=== PATIENT | female | born 1960 | race Caucasian/White ===

== ENCOUNTER 2017-06-02 10:39 | Emergency (ER) | payer OTHER ==
[~2017-06-02] VITALS: Ht 167.6 cm; Wt 75.0 kg
[2017-06-02] MEDS ORDERED: METO50 PO (10:42)
[2017-06-02] MEDS ORDERED: ASPI81 PO (10:42)
[2017-06-02] MEDS ORDERED: PROPARACAINE HCL 0.5% 15 ML OPHTHALMIC SOLUTION OS ONE (12:00)
[2017-06-02] MEDS ORDERED: ACETAMINOPHEN 325 MG TABLET PO ONE (12:00)
[2017-06-02] MEDS ORDERED: FLUORESCEIN SODIUM 1 MG STRIP ONE (12:05)
[2017-06-02] MEDS ORDERED: GENTAMICIN SULFATE 0.3% OPHTHALMIC SOLUTION 5 ML OS ONE (12:30)
[2017-06-02 12:41] VITALS: BP 132/77
== END 2017-06-02 12:47 | disposition home or self-care (01) ==
LOC: EMS 10:40
DX: S05.02XA Injury of conjunctiva and corneal abrasion without foreign body, left eye, initial encounter (principal); I10 Essential (primary) hypertension; X58.XXXA Exposure to other specified factors, initial encounter; Y93.89 Activity, other specified; Y92.89 Other specified places as the place of occurrence of the external cause; Y99.8 Other external cause status
CPT/HCPCS: 99284

== ENCOUNTER 2017-07-07 05:49 | Emergency (ER) | payer OTHER ==
[~2017-07-07] VITALS: Ht 167.6 cm; Wt 72.7 kg
[~2017-07-07 05:49] MED LIST: ASPI81 PO; METO50 PO
[2017-07-07] MEDS ORDERED: ONDANSETRON HCL 4 MG/2 ML VIAL IVP ONE (06:30)
[2017-07-07] MEDS ORDERED: SODIUM CHLORIDE 0.9% 1,000 ML IV ONE (06:30)
[2017-07-07] MEDS ORDERED: ACETAMINOPHEN 500 MG TABLET PO ONE (06:30)
[2017-07-07 06:46] LABS: BASOPHILS # (AUTO) 0.01 K/uL (0.00-0.20); BASOPHILS % (AUTO) 0.2 % (0.0-2.0); EOSINOPHILS % (AUTO) 0.06 % (1.0-6.0); HEMATOCRIT 41.9 % (36-46); HEMOGLOBIN 13.8 g/dL (12.0-16.0); LYMPHOCYTES # (AUTO) 1.2 K/uL (1.0-4.8); LYMPHOCYTES % (AUTO) 20.8 % (22.0-44.0); MEAN CORPUSCULAR HGB CONC 32.9 G/dL (31.0-37.0); MEAN CORPUSCULAR VOLUME 94 fL (80-100); MONOCYTES # (AUTO) 0.3 K/uL (0.1-1.0); MONOCYTES % (AUTO) 5.1 % (2.0-9.0); NEUTROPHILS # (AUTO) 4.3 K/uL (1.8-7.7); NEUTROPHILS % (AUTO) 73.9 % (40.0-70.0); PLATELET COUNT (AUTO) 178 K/uL (150-450); RED BLOOD CELL COUNT(AUTO) 4.45 MIL/uL (4.00-5.20); RED CELL DISTRIBUTION WIDTH 13.2 % (11.5-14.5); WHITE BLOOD COUNT (AUTO) 5.8 K/uL (4.5-11.0)
[2017-07-07 06:56] LABS: ANION GAP 9 mmol/L (8-16); CALCIUM, TOTAL 8.6 mg/dL (8.8-10.5); CARBON DIOXIDE 27 mmol/L (22-29); CHLORIDE 101 mmol/L (98-107); CREATININE 0.85 mg/dL (0.60-1.30); GLOMERULAR FILTR. RATE CALC > 60 mL/min (>60); SODIUM SERUM 137 mmol/L (136-145); UREA NITROGEN, BLOOD 8 mg/dL (7-18)
[2017-07-07 07:01] LABS: ALANINE AMINOTRANSFERASE 45 U/L (12-78); ALBUMIN 3.3 g/dL (3.4-5.0); ASPARTATE AMINOTRANSFERASE 32 U/L (15-37); BILIRUBIN,TOTAL 0.2 mg/dL (0.1-1.0); TOTAL PROTEIN, SERUM 7.8 g/dL (6.4-8.2)
[2017-07-07 07:12] LABS: INFLUENZA TYPE B POSITIVE FOR TYPE B (NEGATIVE)
[2017-07-07] MEDS ORDERED: OSELTAMIVIR PHOSPHATE 75 MG CAPSULE PO ONE (07:30)
[2017-07-07 07:37] VITALS: BP 140/87
== END 2017-07-07 07:51 | disposition home or self-care (01) ==
LOC: EMS 05:50
DX: J11.1 Influenza due to unidentified influenza virus with other respiratory manifestations (principal); K31.89 Other diseases of stomach and duodenum; J02.9 Acute pharyngitis, unspecified; E78.00 Pure hypercholesterolemia, unspecified; I10 Essential (primary) hypertension; Z79.82 Long term (current) use of aspirin
CPT/HCPCS: 36415; 71010; 80053; 83690; 85025; 87804; 96361; 96374; 99285; J2405; J7030

== ENCOUNTER 2021-11-06 20:58 | Inpatient (IN) | payer OTHER ==
[~2021-11-06] VITALS: Ht 167.6 cm; Wt 73.5 kg
[~2021-11-06 20:58] MED LIST changes: +ASPI-1450 PO; -ASPI81 PO
[2021-11-06] MEDS ORDERED: LOSA100T58 PO (21:05)
[2021-11-06] MEDS ORDERED: AMLO10TA55 PO (21:05)
[2021-11-06] MEDS ORDERED: SODIUM CHLORIDE 0.9% 1,000 ML IV ONE (21:15)
[2021-11-06] MEDS ORDERED: ONDANSETRON HCL 4 MG/2 ML VIAL IVP ONE (21:15)
[2021-11-06 21:24] LABS: BASOPHILS % (AUTO) 0.3 % (0.0-2.0); EOSINOPHILS % (AUTO) 1.1 % (1.0-6.0); HEMATOCRIT 33.9 % (36-46); HEMOGLOBIN 11.5 g/dL (12.0-16.0); LYMPHOCYTES # (AUTO) 2.8 K/uL (1.0-4.8); LYMPHOCYTES % (AUTO) 34.7 % (22.0-44.0); MEAN CORPUSCULAR HEMOGLOBIN 28.9 pg (26.0-34.0); MEAN CORPUSCULAR HGB CONC 33.8 G/dL (31.0-37.0); MEAN CORPUSCULAR VOLUME 86 fL (80-100); MONOCYTES # (AUTO) 0.7 K/uL (0.1-1.0); MONOCYTES % (AUTO) 8.3 % (2.0-9.0); NEUTROPHILS # (AUTO) 4.5 K/uL (1.8-7.7); NEUTROPHILS % (AUTO) 55.6 % (40.0-70.0); PLATELET COUNT (AUTO) 356 K/uL (150-450); RED BLOOD CELL COUNT(AUTO) 3.97 MIL/uL (4.00-5.20); RED CELL DISTRIBUTION WIDTH 13.9 % (11.5-14.5)
[2021-11-06 21:33] LABS: ANION GAP 8 mmol/L (8-16); CALCIUM, TOTAL 8.7 mg/dL (8.8-10.5); CARBON DIOXIDE 29 mmol/L (22-29); CHLORIDE 103 mmol/L (98-107); CREATININE 0.73 mg/dL (0.60-1.30); GLOMERULAR FILTR. RATE CALC > 60 mL/min (>60); GLUCOSE,RANDOM 123 mg/dL (70-110); POTASSIUM 3.9 mmol/L (3.5-5.1); SODIUM SERUM 140 mmol/L (136-145); UREA NITROGEN, BLOOD 19 mg/dL (7-18)
[2021-11-06 21:39] LABS: ALANINE AMINOTRANSFERASE 25 U/L (12-78); ALKALINE PHOSPHATASE 87 U/L (46-116); ASPARTATE AMINOTRANSFERASE 16 U/L (15-37); BILIRUBIN,TOTAL 0.1 mg/dL (0.1-1.0); LIPASE 125 U/L (73-393); TOTAL PROTEIN, SERUM 7.9 g/dL (6.4-8.2)
[2021-11-06 21:42] LABS: COVID AG,FIA SOURCE NASAL SWAB
[2021-11-06 21:50] LABS: APPEARANCE,URINE CLEAR (CLEAR); BILIRUBIN,URINE NEGATIVE (NEGATIVE); GLUCOSE, URINE (UA) NEGATIVE (NEGATIVE); KETONES,URINE NEGATIVE (NEGATIVE); LEUKOCYTE ESTERASE ,URINE SMALL (NEGATIVE); NITRATE,URINE NEGATIVE (NEGATIVE); OCCULT BLOOD,URINE MODERATE (NEGATIVE); PH,URINE 5.5 (5.0-8.0); PROTEIN,URINE NEGATIVE (NEGATIVE); SPECIFIC GRAVITIY, URINE 1.012 (1.003-1.030); UROBILINOGEN,URINE <=1.0 mg/dL (<=1.0)
[2021-11-06 22:03] LABS: INFLUENZA TYPE A NEGATIVE FOR TYPE A (NEGATIVE); INFLUENZA TYPE B NEGATIVE FOR TYPE B (NEGATIVE)
[2021-11-06 22:14] LABS: BACTERIA,URINE None Seen /HPF (None Seen); SQUAMOUS EPITHELIAL CELL,UR Few /LPF (None Seen); WBC,URINE 0-2 /HPF (0-5)
[2021-11-06] MEDS ORDERED: BARIUM SULFATE 0.1% SUSPENSION 450 ML BOTTLE PO ONE (22:15)
[2021-11-06] MEDS ORDERED: SODIUM CHLORIDE 0.9% 100 ML ONE (22:29)
[2021-11-06] MEDS ORDERED: IOHEXOL 350 MG/ML 100 ML VIAL ONE (22:29)
[2021-11-07] VITALS (7 sets, daily range): BP systolic 120–146; BP diastolic 58–78
[2021-11-07] MEDS ORDERED: ONDANSETRON HCL 4 MG/2 ML VIAL IVP PRN
[2021-11-07] MEDS: HEPARIN SODIUM,PORCINE 5,000 UNITS/ML VIAL SQ SCH ×3 (02:03→16:18)
[2021-11-07] MEDS: PIPERACILLIN/TAZO 3.375 GM/D5W 50 ML IV SCH ×4 (02:05→21:13)
[2021-11-07] MEDS: RINGERS SOLUTION,LACTATED 1,000 ML IV SCH ×3 (02:44→16:15)
[2021-11-07] MEDS ORDERED: SODIUM CHLORIDE 0.9% 250 ML IV ONE (02:53)
[2021-11-07] MEDS: ACETAMINOPHEN 325 MG TABLET PO PRN (16:18)
[2021-11-08] MEDS: HEPARIN SODIUM,PORCINE 5,000 UNITS/ML VIAL SQ SCH ×4 (00:19→23:30)
[2021-11-08] MEDS: RINGERS SOLUTION,LACTATED 1,000 ML IV SCH ×3 (00:19→20:07)
[2021-11-08] MEDS: PIPERACILLIN/TAZO 3.375 GM/D5W 50 ML IV SCH ×4 (02:17→20:07)
[2021-11-08 04:10] VITALS: BP 132/74
[2021-11-08 07:54] VITALS: BP 128/76
[2021-11-08] MEDS: ACETAMINOPHEN 325 MG TABLET PO PRN ×2 (09:43→20:14)
[2021-11-08 15:51] VITALS: BP 127/69
[2021-11-08 20:06] VITALS: BP 132/76
[2021-11-09] MEDS: PIPERACILLIN/TAZO 3.375 GM/D5W 50 ML IV SCH ×4 (01:37→19:35)
[2021-11-09 05:01] VITALS: BP 116/63
[2021-11-09] MEDS: RINGERS SOLUTION,LACTATED 1,000 ML IV SCH ×3 (05:55→16:02)
[2021-11-09 07:23] VITALS: BP 130/72
[2021-11-09] MEDS ORDERED: SODIUM CHLORIDE 0.9% 250 ML IV ONE (09:08)
[2021-11-09] MEDS: HEPARIN SODIUM,PORCINE 5,000 UNITS/ML VIAL SQ SCH ×3 (09:10→23:08)
[2021-11-09] MEDS: ACETAMINOPHEN 325 MG TABLET PO PRN (15:02)
[2021-11-09 15:24] VITALS: BP 149/81
[2021-11-09 15:39] LABS: BASOPHILS % (AUTO) 0.4 % (0.0-2.0); EOSINOPHILS % (AUTO) 0.8 % (1.0-6.0); HEMATOCRIT 34.1 % (36-46); HEMOGLOBIN 11.2 g/dL (12.0-16.0); LYMPHOCYTES # (AUTO) 2.8 K/uL (1.0-4.8); LYMPHOCYTES % (AUTO) 44.1 % (22.0-44.0); MEAN CORPUSCULAR HEMOGLOBIN 28.1 pg (26.0-34.0); MEAN CORPUSCULAR HGB CONC 32.8 G/dL (31.0-37.0); MEAN CORPUSCULAR VOLUME 86 fL (80-100); MONOCYTES # (AUTO) 0.5 K/uL (0.1-1.0); MONOCYTES % (AUTO) 7.7 % (2.0-9.0); PLATELET COUNT (AUTO) 363 K/uL (150-450); RED BLOOD CELL COUNT(AUTO) 3.98 MIL/uL (4.00-5.20); RED CELL DISTRIBUTION WIDTH 13.9 % (11.5-14.5)
[2021-11-09 15:47] LABS: ANION GAP 8 mmol/L (8-16); CALCIUM, TOTAL 9.1 mg/dL (8.8-10.5); CARBON DIOXIDE 27 mmol/L (22-29); CHLORIDE 106 mmol/L (98-107); CREATININE 0.75 mg/dL (0.60-1.30); GLOMERULAR FILTR. RATE CALC > 60 mL/min (>60); GLUCOSE,RANDOM 97 mg/dL (70-110); POTASSIUM 3.8 mmol/L (3.5-5.1); SODIUM SERUM 141 mmol/L (136-145); UREA NITROGEN, BLOOD 6 mg/dL (7-18)
[2021-11-09 15:53] LABS: ALANINE AMINOTRANSFERASE 29 U/L (12-78); ALBUMIN 2.8 g/dL (3.4-5.0); ALKALINE PHOSPHATASE 86 U/L (46-116); ASPARTATE AMINOTRANSFERASE 22 U/L (15-37); BILIRUBIN,TOTAL 0.2 mg/dL (0.1-1.0); TOTAL PROTEIN, SERUM 7.6 g/dL (6.4-8.2)
[2021-11-09] MEDS ORDERED: IOHEXOL 350 MG/ML 100 ML VIAL ONE (16:07)
[2021-11-09] MEDS ORDERED: SODIUM CHLORIDE 0.9% 100 ML ONE (16:07)
[2021-11-09] MEDS ORDERED: ERGO500093 PO (16:17)
[2021-11-09] MEDS ORDERED: METO-391 PO (16:17)
[2021-11-09] MEDS ORDERED: HYDR200T4 PO (16:17)
[2021-11-09 20:03] VITALS: BP 133/69
[2021-11-10] MEDS: RINGERS SOLUTION,LACTATED 1,000 ML IV SCH ×4 (01:54→20:43)
[2021-11-10] MEDS: PIPERACILLIN/TAZO 3.375 GM/D5W 50 ML IV SCH ×4 (01:54→19:37)
[2021-11-10 04:13] VITALS: BP 127/67
[2021-11-10 07:17] VITALS: BP 132/73
[2021-11-10] MEDS: HEPARIN SODIUM,PORCINE 5,000 UNITS/ML VIAL SQ SCH ×3 (08:36→23:09)
[2021-11-10 15:30] VITALS: BP 151/58
[2021-11-10] MEDS: ACETAMINOPHEN 325 MG TABLET PO PRN (16:42)
[2021-11-10 20:28] VITALS: BP 143/86
[2021-11-10] MEDS ORDERED: SODIUM CHLORIDE 0.9% 500 ML IV ONE (20:38)
[2021-11-11] MEDS: PIPERACILLIN/TAZO 3.375 GM/D5W 50 ML IV SCH ×3 (02:02→13:08)
[2021-11-11 04:16] VITALS: BP 142/75
[2021-11-11] MEDS: RINGERS SOLUTION,LACTATED 1,000 ML IV SCH ×2 (05:43→16:00)
[2021-11-11 08:00] VITALS: BP 147/84
[2021-11-11] MEDS: HEPARIN SODIUM,PORCINE 5,000 UNITS/ML VIAL SQ SCH ×2 (08:33→16:42)
[2021-11-11 14:04] LABS: BASOPHILS % (AUTO) 0.4 % (0.0-2.0); EOSINOPHILS % (AUTO) 0.9 % (1.0-6.0); HEMATOCRIT 29.7 % (36-46); HEMOGLOBIN 9.8 g/dL (12.0-16.0); LYMPHOCYTES % (AUTO) 37.5 % (22.0-44.0); MEAN CORPUSCULAR HEMOGLOBIN 28.5 pg (26.0-34.0); MEAN CORPUSCULAR HGB CONC 32.9 G/dL (31.0-37.0); MEAN CORPUSCULAR VOLUME 87 fL (80-100); MONOCYTES # (AUTO) 0.4 K/uL (0.1-1.0); MONOCYTES % (AUTO) 6.7 % (2.0-9.0); NEUTROPHILS % (AUTO) 54.5 % (40.0-70.0); PLATELET COUNT (AUTO) 305 K/uL (150-450); RED BLOOD CELL COUNT(AUTO) 3.42 MIL/uL (4.00-5.20); RED CELL DISTRIBUTION WIDTH 13.8 % (11.5-14.5)
[2021-11-11 14:13] LABS: ANION GAP 16 mmol/L (8-16); CALCIUM, TOTAL 7.1 mg/dL (8.8-10.5); CARBON DIOXIDE 21 mmol/L (22-29); CHLORIDE 104 mmol/L (98-107); CREATININE 0.82 mg/dL (0.60-1.30); GLOMERULAR FILTR. RATE CALC > 60 mL/min (>60); GLUCOSE,RANDOM 255 mg/dL (70-110); POTASSIUM 3.3 mmol/L (3.5-5.1); SODIUM SERUM 141 mmol/L (136-145); UREA NITROGEN, BLOOD 10 mg/dL (7-18)
[2021-11-11 14:19] LABS: ALANINE AMINOTRANSFERASE 55 U/L (12-78); ALBUMIN 2.2 g/dL (3.4-5.0); ALKALINE PHOSPHATASE 71 U/L (46-116); ASPARTATE AMINOTRANSFERASE 52 U/L (15-37); BILIRUBIN,TOTAL 0.1 mg/dL (0.1-1.0); TOTAL PROTEIN, SERUM 6.3 g/dL (6.4-8.2)
[2021-11-11] MEDS: MetroNIDAZOLE 500 MG/NACL 100 ML IV SCH ×2 (14:57→21:14)
[2021-11-11] MEDS: ACETAMINOPHEN 325 MG TABLET PO PRN ×2 (14:57→22:05)
[2021-11-11 15:51] VITALS: BP 143/81
[2021-11-11 20:10] VITALS: BP 151/82
[2021-11-11] MEDS: PIPERACILLIN SODIUM/TAZOBACTAM 4.5 GM in DEXTROSE 5%-WATER 100 ML IV SCH (20:18)
[2021-11-11] MEDS ORDERED: SODIUM CHLORIDE 0.9% 500 ML IV ONE (20:23)
[2021-11-12] MEDS: HEPARIN SODIUM,PORCINE 5,000 UNITS/ML VIAL SQ SCH ×4 (00:14→23:08)
[2021-11-12] MEDS: RINGERS SOLUTION,LACTATED 1,000 ML IV SCH ×4 (00:14→23:08)
[2021-11-12] MEDS: PIPERACILLIN SODIUM/TAZOBACTAM 4.5 GM in DEXTROSE 5%-WATER 100 ML IV SCH ×4 (01:43→19:57)
[2021-11-12 04:38] VITALS: BP 130/72
[2021-11-12] MEDS: MetroNIDAZOLE 500 MG/NACL 100 ML IV SCH ×3 (05:08→21:05)
[2021-11-12 08:00] VITALS: BP 152/89
[2021-11-12] MEDS ORDERED: SODIUM CHLORIDE 0.9% 500 ML IV ONE (09:07)
[2021-11-12] MEDS: ACETAMINOPHEN 325 MG TABLET PO PRN ×2 (11:20→21:08)
[2021-11-12 16:01] VITALS: BP 147/86
[2021-11-12 20:15] VITALS: BP 144/71
[2021-11-13] MEDS: PIPERACILLIN SODIUM/TAZOBACTAM 4.5 GM in DEXTROSE 5%-WATER 100 ML IV SCH ×4 (01:21→19:39)
[2021-11-13 04:38] VITALS: BP 151/77
[2021-11-13] MEDS: MetroNIDAZOLE 500 MG/NACL 100 ML IV SCH ×3 (05:41→22:07)
[2021-11-13 06:12] LABS: BASOPHILS % (AUTO) 0.6 % (0.0-2.0); EOSINOPHILS % (AUTO) 1.5 % (1.0-6.0); HEMATOCRIT 35.2 % (36-46); HEMOGLOBIN 11.4 g/dL (12.0-16.0); LYMPHOCYTES # (AUTO) 2.4 K/uL (1.0-4.8); LYMPHOCYTES % (AUTO) 35.4 % (22.0-44.0); MEAN CORPUSCULAR HEMOGLOBIN 28.2 pg (26.0-34.0); MEAN CORPUSCULAR HGB CONC 32.3 G/dL (31.0-37.0); MEAN CORPUSCULAR VOLUME 87 fL (80-100); MONOCYTES # (AUTO) 0.6 K/uL (0.1-1.0); MONOCYTES % (AUTO) 8.4 % (2.0-9.0); NEUTROPHILS # (AUTO) 3.6 K/uL (1.8-7.7); NEUTROPHILS % (AUTO) 54.1 % (40.0-70.0); PLATELET COUNT (AUTO) 348 K/uL (150-450); RED BLOOD CELL COUNT(AUTO) 4.03 MIL/uL (4.00-5.20); RED CELL DISTRIBUTION WIDTH 14.1 % (11.5-14.5)
[2021-11-13 08:05] VITALS: BP 149/80
[2021-11-13] MEDS: HEPARIN SODIUM,PORCINE 5,000 UNITS/ML VIAL SQ SCH ×3 (09:21→23:32)
[2021-11-13] MEDS: RINGERS SOLUTION,LACTATED 1,000 ML IV SCH ×3 (09:22→22:08)
[2021-11-13 16:10] VITALS: BP 154/81
[2021-11-13 19:35] VITALS: BP 164/84
[2021-11-13] MEDS: ACETAMINOPHEN 325 MG TABLET PO PRN (19:47)
[2021-11-14] MEDS: PIPERACILLIN SODIUM/TAZOBACTAM 4.5 GM in DEXTROSE 5%-WATER 100 ML IV SCH ×2 (01:56→08:54)
[2021-11-14 04:10] VITALS: BP 140/75
[2021-11-14] MEDS: MetroNIDAZOLE 500 MG/NACL 100 ML IV SCH ×2 (05:04→13:10)
[2021-11-14 05:41] VITALS: BP 140/75
[2021-11-14 07:33] VITALS: BP 143/83
[2021-11-14] MEDS: HEPARIN SODIUM,PORCINE 5,000 UNITS/ML VIAL SQ SCH ×3 (08:54→22:47)
[2021-11-14] MEDS: RINGERS SOLUTION,LACTATED 1,000 ML IV SCH ×3 (08:55→22:56)
[2021-11-14 15:41] VITALS: BP 146/81
[2021-11-14] MEDS: MetroNIDAZOLE 500 MG TABLET PO SCH ×2 (16:13→22:46)
[2021-11-14] MEDS: LEVOFLOXACIN 750 MG TABLET PO SCH (16:14)
[2021-11-14 20:19] VITALS: BP 146/84
[2021-11-15 04:40] VITALS: BP 128/59
[2021-11-15 06:34] LABS: BASOPHILS % (AUTO) 0.5 % (0.0-2.0); EOSINOPHILS % (AUTO) 0.6 % (1.0-6.0); HEMATOCRIT 35.1 % (36-46); HEMOGLOBIN 11.4 g/dL (12.0-16.0); LYMPHOCYTES # (AUTO) 2.3 K/uL (1.0-4.8); LYMPHOCYTES % (AUTO) 35.4 % (22.0-44.0); MEAN CORPUSCULAR HEMOGLOBIN 28.2 pg (26.0-34.0); MEAN CORPUSCULAR HGB CONC 32.5 G/dL (31.0-37.0); MEAN CORPUSCULAR VOLUME 87 fL (80-100); MONOCYTES # (AUTO) 0.5 K/uL (0.1-1.0); MONOCYTES % (AUTO) 8.4 % (2.0-9.0); NEUTROPHILS # (AUTO) 3.5 K/uL (1.8-7.7); NEUTROPHILS % (AUTO) 55.1 % (40.0-70.0); PLATELET COUNT (AUTO) 352 K/uL (150-450); RED BLOOD CELL COUNT(AUTO) 4.04 MIL/uL (4.00-5.20); RED CELL DISTRIBUTION WIDTH 14.4 % (11.5-14.5)
[2021-11-15 07:04] LABS: ALANINE AMINOTRANSFERASE 152 U/L (12-78); ALBUMIN 2.8 g/dL (3.4-5.0); ALKALINE PHOSPHATASE 88 U/L (46-116); ANION GAP 8 mmol/L (8-16); ASPARTATE AMINOTRANSFERASE 112 U/L (15-37); BILIRUBIN,TOTAL 0.2 mg/dL (0.1-1.0); CALCIUM, TOTAL 8.7 mg/dL (8.8-10.5); CARBON DIOXIDE 26 mmol/L (22-29); CHLORIDE 105 mmol/L (98-107); CREATININE 0.67 mg/dL (0.60-1.30); GLOMERULAR FILTR. RATE CALC > 60 mL/min (>60); GLUCOSE,RANDOM 97 mg/dL (70-110); POTASSIUM 3.7 mmol/L (3.5-5.1); SODIUM SERUM 139 mmol/L (136-145); TOTAL PROTEIN, SERUM 7.3 g/dL (6.4-8.2); UREA NITROGEN, BLOOD 9 mg/dL (7-18)
[2021-11-15 07:58] VITALS: BP 131/72
[2021-11-15] MEDS: HEPARIN SODIUM,PORCINE 5,000 UNITS/ML VIAL SQ SCH ×3 (08:53→23:17)
[2021-11-15] MEDS: LEVOFLOXACIN 750 MG TABLET PO SCH (08:53)
[2021-11-15] MEDS: MetroNIDAZOLE 500 MG TABLET PO SCH (08:54)
[2021-11-15] MEDS: RINGERS SOLUTION,LACTATED 1,000 ML IV SCH ×2 (08:55→15:52)
[2021-11-15] MEDS: MetroNIDAZOLE 500 MG/NACL 100 ML IV SCH ×2 (15:46→23:21)
[2021-11-15 16:08] VITALS: BP 176/84
[2021-11-15 17:38] VITALS: BP 142/79
[2021-11-15 20:15] VITALS: BP 145/89
[2021-11-15] MEDS: ACETAMINOPHEN 325 MG TABLET PO PRN (23:18)
[2021-11-16] MEDS: RINGERS SOLUTION,LACTATED 1,000 ML IV SCH ×3 (03:46→15:43)
[2021-11-16 04:48] VITALS: BP 136/75
[2021-11-16 08:02] VITALS: BP 132/75
[2021-11-16] MEDS: MetroNIDAZOLE 500 MG/NACL 100 ML IV SCH ×3 (08:12→23:25)
[2021-11-16] MEDS: HEPARIN SODIUM,PORCINE 5,000 UNITS/ML VIAL SQ SCH ×3 (08:12→23:24)
[2021-11-16] MEDS ORDERED: SODIUM CHLORIDE 0.9% 500 ML IV ONE (08:17)
[2021-11-16] MEDS: LEVOFLOXACIN 750 MG/D5% WATER 150 ML IV SCH (09:51)
[2021-11-16 16:06] VITALS: BP 136/77
[2021-11-16 19:27] VITALS: BP 141/76
[2021-11-17 04:42] VITALS: BP 143/73
[2021-11-17] MEDS: RINGERS SOLUTION,LACTATED 1,000 ML IV SCH ×3 (04:42→23:23)
[2021-11-17 07:26] VITALS: BP 142/80
[2021-11-17] MEDS: HEPARIN SODIUM,PORCINE 5,000 UNITS/ML VIAL SQ SCH ×3 (08:09→23:23)
[2021-11-17] MEDS: MetroNIDAZOLE 500 MG/NACL 100 ML IV SCH (08:09)
[2021-11-17] MEDS: LEVOFLOXACIN 750 MG/D5% WATER 150 ML IV SCH (10:45)
[2021-11-17] MEDS: MetroNIDAZOLE 500 MG TABLET PO SCH ×2 (15:24→19:50)
[2021-11-17 15:34] VITALS: BP 138/85
[2021-11-17 19:30] VITALS: BP 120/76
[2021-11-18 04:30] VITALS: BP 131/66
[2021-11-18] MEDS: RINGERS SOLUTION,LACTATED 1,000 ML IV SCH ×4 (07:37→23:38)
[2021-11-18] MEDS: LEVOFLOXACIN 750 MG/D5% WATER 150 ML IV SCH (07:37)
[2021-11-18] MEDS: MetroNIDAZOLE 500 MG TABLET PO SCH ×3 (07:37→20:06)
[2021-11-18] MEDS: HEPARIN SODIUM,PORCINE 5,000 UNITS/ML VIAL SQ SCH ×3 (07:37→23:34)
[2021-11-18 08:01] VITALS: BP 154/75
[2021-11-18 14:40] LABS: BASOPHILS % (AUTO) 0.7 % (0.0-2.0); EOSINOPHILS % (AUTO) 0.5 % (1.0-6.0); HEMATOCRIT 32.5 % (36-46); HEMOGLOBIN 10.7 g/dL (12.0-16.0); LYMPHOCYTES # (AUTO) 2.5 K/uL (1.0-4.8); LYMPHOCYTES % (AUTO) 31.3 % (22.0-44.0); MEAN CORPUSCULAR HEMOGLOBIN 28.9 pg (26.0-34.0); MEAN CORPUSCULAR VOLUME 88 fL (80-100); MONOCYTES # (AUTO) 0.7 K/uL (0.1-1.0); MONOCYTES % (AUTO) 8.1 % (2.0-9.0); NEUTROPHILS # (AUTO) 4.8 K/uL (1.8-7.7); NEUTROPHILS % (AUTO) 59.4 % (40.0-70.0); PLATELET COUNT (AUTO) 327 K/uL (150-450); RED BLOOD CELL COUNT(AUTO) 3.71 MIL/uL (4.00-5.20); RED CELL DISTRIBUTION WIDTH 14.9 % (11.5-14.5)
[2021-11-18 15:34] VITALS: BP 148/80
[2021-11-18 19:20] VITALS: BP 154/71
[2021-11-19] MEDS ORDERED: SODIUM CHLORIDE 0.9% 100 ML ONE (00:09)
[2021-11-19] MEDS ORDERED: IOHEXOL 350 MG/ML 100 ML VIAL ONE (00:10)
[2021-11-19] MEDS ORDERED: BARIUM SULFATE 0.1% SUSPENSION 450 ML BOTTLE ONE ×2 (00:11→09:28)
[2021-11-19 04:22] VITALS: BP 144/79
[2021-11-19 07:11] LABS: BASOPHILS % (AUTO) 0.7 % (0.0-2.0); EOSINOPHILS % (AUTO) 0.8 % (1.0-6.0); HEMATOCRIT 33.9 % (36-46); HEMOGLOBIN 11.3 g/dL (12.0-16.0); LYMPHOCYTES # (AUTO) 2.4 K/uL (1.0-4.8); LYMPHOCYTES % (AUTO) 30.6 % (22.0-44.0); MEAN CORPUSCULAR HEMOGLOBIN 28.9 pg (26.0-34.0); MEAN CORPUSCULAR HGB CONC 33.3 G/dL (31.0-37.0); MEAN CORPUSCULAR VOLUME 87 fL (80-100); MONOCYTES # (AUTO) 0.6 K/uL (0.1-1.0); MONOCYTES % (AUTO) 8.1 % (2.0-9.0); NEUTROPHILS # (AUTO) 4.7 K/uL (1.8-7.7); NEUTROPHILS % (AUTO) 59.8 % (40.0-70.0); PLATELET COUNT (AUTO) 358 K/uL (150-450)
[2021-11-19 07:49] LABS: ALANINE AMINOTRANSFERASE 82 U/L (12-78); ALBUMIN 2.9 g/dL (3.4-5.0); ALKALINE PHOSPHATASE 75 U/L (46-116); ANION GAP 7 mmol/L (8-16); ASPARTATE AMINOTRANSFERASE 22 U/L (15-37); BILIRUBIN,TOTAL 0.2 mg/dL (0.1-1.0); CALCIUM, TOTAL 8.9 mg/dL (8.8-10.5); CARBON DIOXIDE 27 mmol/L (22-29); CHLORIDE 104 mmol/L (98-107); CREATININE 0.66 mg/dL (0.60-1.30); GLOMERULAR FILTR. RATE CALC > 60 mL/min (>60); GLUCOSE,RANDOM 97 mg/dL (70-110); POTASSIUM 3.9 mmol/L (3.5-5.1); SODIUM SERUM 138 mmol/L (136-145); TOTAL PROTEIN, SERUM 7.4 g/dL (6.4-8.2); UREA NITROGEN, BLOOD 6 mg/dL (7-18)
[2021-11-19 08:40] VITALS: BP 134/66
[2021-11-19] MEDS: RINGERS SOLUTION,LACTATED 1,000 ML IV SCH ×3 (09:46→23:43)
[2021-11-19] MEDS: LEVOFLOXACIN 750 MG TABLET PO SCH (09:46)
[2021-11-19] MEDS: MetroNIDAZOLE 500 MG TABLET PO SCH ×3 (09:46→20:01)
[2021-11-19] MEDS: HEPARIN SODIUM,PORCINE 5,000 UNITS/ML VIAL SQ SCH ×3 (09:51→23:43)
[2021-11-19] MEDS: ACETAMINOPHEN 325 MG TABLET PO PRN (14:07)
[2021-11-19 16:43] VITALS: BP 127/70
[2021-11-19] MEDS ORDERED: SODIUM CHLORIDE 0.9% 500 ML IV ONE (16:45)
[2021-11-19] MEDS: MORPHINE SULFATE 2 MG/ML SYRINGE IVP PRN (18:41)
[2021-11-19 19:40] VITALS: BP 165/89
[2021-11-19] MEDS: SIMETHICONE 80 MG CHEWABLE TABLET CHEW PRN (20:01)
[2021-11-19 21:41] VITALS: BP 131/60
[2021-11-20 05:05] VITALS: BP 131/65
[2021-11-20 08:02] VITALS: BP 141/76
[2021-11-20] MEDS: SIMETHICONE 80 MG CHEWABLE TABLET CHEW PRN (08:53)
[2021-11-20] MEDS: HEPARIN SODIUM,PORCINE 5,000 UNITS/ML VIAL SQ SCH ×2 (08:53→15:13)
[2021-11-20] MEDS: LEVOFLOXACIN 750 MG TABLET PO SCH (08:53)
[2021-11-20] MEDS: MetroNIDAZOLE 500 MG TABLET PO SCH (08:53)
[2021-11-20] MEDS: RINGERS SOLUTION,LACTATED 1,000 ML IV SCH (08:53)
[2021-11-20] MEDS ORDERED: DOXYCYCLINE HYCLATE 100 MG in DEXTROSE 5%-WATER 100 ML IV SCH (10:00)
[2021-11-20] MEDS: PANTOPRAZOLE SODIUM 40 MG/VIAL IVP SCH (13:41)
[2021-11-20] MEDS: SODIUM CHLORIDE 0.9% 1,000 ML IV SCH (13:41)
[2021-11-20] MEDS: PIPERACILLIN/TAZO 3.375 GM/D5W 50 ML IV SCH ×2 (15:13→20:28)
[2021-11-20 16:21] VITALS: BP 141/87
[2021-11-20 20:18] VITALS: BP 166/69
[2021-11-20] MEDS: MORPHINE SULFATE 2 MG/ML SYRINGE IVP PRN (20:28)
[2021-11-20] MEDS ORDERED: ACETAMINOPHEN 650 MG/ISO-OSM 65 ML IV ONE (21:00)
[2021-11-20] MEDS ORDERED: DOXYCYCLINE HYCLATE 100 MG TABLET PO SCH (21:00)
[2021-11-20] MEDS: DOXYCYCLINE HYCLATE 100 MG in DEXTROSE 5%-WATER 100 ML IV SCH (22:09)
[2021-11-21] MEDS: HEPARIN SODIUM,PORCINE 5,000 UNITS/ML VIAL SQ SCH ×3 (00:22→16:22)
[2021-11-21] MEDS: PIPERACILLIN/TAZO 3.375 GM/D5W 50 ML IV SCH ×2 (02:11→08:28)
[2021-11-21] MEDS: SODIUM CHLORIDE 0.9% 1,000 ML IV SCH ×3 (02:20→18:20)
[2021-11-21 04:39] VITALS: BP 144/78
[2021-11-21 07:28] LABS: BASOPHILS % (AUTO) 0.3 % (0.0-2.0); EOSINOPHILS % (AUTO) 0.7 % (1.0-6.0); HEMATOCRIT 31.9 % (36-46); HEMOGLOBIN 10.6 g/dL (12.0-16.0); LYMPHOCYTES # (AUTO) 1.8 K/uL (1.0-4.8); LYMPHOCYTES % (AUTO) 28.6 % (22.0-44.0); MEAN CORPUSCULAR HEMOGLOBIN 29.2 pg (26.0-34.0); MEAN CORPUSCULAR HGB CONC 33.3 G/dL (31.0-37.0); MEAN CORPUSCULAR VOLUME 88 fL (80-100); MONOCYTES # (AUTO) 0.6 K/uL (0.1-1.0); MONOCYTES % (AUTO) 9.4 % (2.0-9.0); NEUTROPHILS # (AUTO) 3.7 K/uL (1.8-7.7); PLATELET COUNT (AUTO) 327 K/uL (150-450); RED BLOOD CELL COUNT(AUTO) 3.64 MIL/uL (4.00-5.20); RED CELL DISTRIBUTION WIDTH 15.8 % (11.5-14.5)
[2021-11-21 07:40] VITALS: BP 161/91
[2021-11-21 07:43] LABS: ALANINE AMINOTRANSFERASE 47 U/L (12-78); ALBUMIN 2.5 g/dL (3.4-5.0); ALKALINE PHOSPHATASE 59 U/L (46-116); ANION GAP 4 mmol/L (8-16); ASPARTATE AMINOTRANSFERASE 15 U/L (15-37); BILIRUBIN,TOTAL 0.3 mg/dL (0.1-1.0); CALCIUM, TOTAL 8.5 mg/dL (8.8-10.5); CARBON DIOXIDE 27 mmol/L (22-29); CHLORIDE 107 mmol/L (98-107); CREATININE 0.74 mg/dL (0.60-1.30); GLOMERULAR FILTR. RATE CALC > 60 mL/min (>60); GLUCOSE,RANDOM 98 mg/dL (70-110); POTASSIUM 3.6 mmol/L (3.5-5.1); SODIUM SERUM 138 mmol/L (136-145); TOTAL PROTEIN, SERUM 6.6 g/dL (6.4-8.2); UREA NITROGEN, BLOOD 7 mg/dL (7-18)
[2021-11-21] MEDS: PANTOPRAZOLE SODIUM 40 MG/VIAL IVP SCH (08:26)
[2021-11-21] MEDS: DOXYCYCLINE HYCLATE 100 MG in DEXTROSE 5%-WATER 100 ML IV SCH ×2 (10:11→21:27)
[2021-11-21 10:45] VITALS: BP 138/81
[2021-11-21] MEDS ORDERED: MORPHINE SULFATE 4 MG/ML SYRINGE IVP PRN (11:00)
[2021-11-21] MEDS ORDERED: IBUPROFEN 400 MG TABLET PO PRN (11:00)
[2021-11-21] MEDS ORDERED: BISACODYL 10 MG RECTAL RECTAL SUPPOSITORY PR ONE (11:00)
[2021-11-21] MEDS: ACETAMINOPHEN 325 MG TABLET PO PRN ×2 (11:05→18:26)
[2021-11-21] MEDS: MINERAL OIL 30 ML UDCUP PO SCH (14:46)
[2021-11-21] MEDS: MEROPENEM 1 GM in SODIUM CHLORIDE 0.9% 100 ML IV SCH ×2 (14:46→22:53)
[2021-11-21 15:28] VITALS: BP 132/81
[2021-11-21 19:54] VITALS: BP 140/81
[2021-11-22] MEDS: HEPARIN SODIUM,PORCINE 5,000 UNITS/ML VIAL SQ SCH ×4 (00:09→22:10)
[2021-11-22 04:00] VITALS: BP 119/56
[2021-11-22] MEDS: MEROPENEM 1 GM in SODIUM CHLORIDE 0.9% 100 ML IV SCH ×3 (05:30→20:52)
[2021-11-22 05:46] LABS: BASOPHILS % (AUTO) 0.4 % (0.0-2.0); HEMATOCRIT 32.2 % (36-46); HEMOGLOBIN 10.7 g/dL (12.0-16.0); LYMPHOCYTES # (AUTO) 1.9 K/uL (1.0-4.8); LYMPHOCYTES % (AUTO) 29.6 % (22.0-44.0); MEAN CORPUSCULAR HEMOGLOBIN 29.3 pg (26.0-34.0); MEAN CORPUSCULAR HGB CONC 33.3 G/dL (31.0-37.0); MEAN CORPUSCULAR VOLUME 88 fL (80-100); MONOCYTES # (AUTO) 0.6 K/uL (0.1-1.0); MONOCYTES % (AUTO) 9.4 % (2.0-9.0); NEUTROPHILS # (AUTO) 3.9 K/uL (1.8-7.7); NEUTROPHILS % (AUTO) 59.6 % (40.0-70.0); PLATELET COUNT (AUTO) 345 K/uL (150-450); RED BLOOD CELL COUNT(AUTO) 3.67 MIL/uL (4.00-5.20); RED CELL DISTRIBUTION WIDTH 15.4 % (11.5-14.5)
[2021-11-22 06:10] LABS: ALANINE AMINOTRANSFERASE 40 U/L (12-78); ALBUMIN 2.5 g/dL (3.4-5.0); ALKALINE PHOSPHATASE 61 U/L (46-116); ANION GAP 6 mmol/L (8-16); ASPARTATE AMINOTRANSFERASE 18 U/L (15-37); BILIRUBIN,TOTAL 0.4 mg/dL (0.1-1.0); CALCIUM, TOTAL 8.4 mg/dL (8.8-10.5); CARBON DIOXIDE 27 mmol/L (22-29); CHLORIDE 107 mmol/L (98-107); CREATININE 0.58 mg/dL (0.60-1.30); GLUCOSE,RANDOM 91 mg/dL (70-110); POTASSIUM 3.4 mmol/L (3.5-5.1); SODIUM SERUM 140 mmol/L (136-145); TOTAL PROTEIN, SERUM 6.6 g/dL (6.4-8.2); UREA NITROGEN, BLOOD 7 mg/dL (7-18)
[2021-11-22 06:17] LABS: GLOMERULAR FILTR. RATE CALC > 60 mL/min (>60)
[2021-11-22] MEDS ORDERED: POTASSIUM CHLORIDE 20 MEQ ER TABLET PO PRN (07:45)
[2021-11-22 08:05] VITALS: BP 140/74
[2021-11-22] MEDS: MINERAL OIL 30 ML UDCUP PO SCH (08:08)
[2021-11-22] MEDS: SODIUM CHLORIDE 0.9% 1,000 ML IV SCH ×2 (08:09→15:28)
[2021-11-22] MEDS: PANTOPRAZOLE SODIUM 40 MG/VIAL IVP SCH (08:09)
[2021-11-22] MEDS: DOXYCYCLINE HYCLATE 100 MG in DEXTROSE 5%-WATER 100 ML IV SCH ×2 (11:34→22:05)
[2021-11-22 16:09] VITALS: BP 157/86
[2021-11-22 19:44] VITALS: BP 130/74
[2021-11-22] MEDS: ACETAMINOPHEN 325 MG TABLET PO PRN (20:57)
[2021-11-23] MEDS: SODIUM CHLORIDE 0.9% 1,000 ML IV SCH ×3 (04:24→22:24)
[2021-11-23] MEDS: MEROPENEM 1 GM in SODIUM CHLORIDE 0.9% 100 ML IV SCH ×3 (04:24→20:21)
[2021-11-23 04:58] VITALS: BP 124/65
[2021-11-23 08:10] VITALS: BP 149/81
[2021-11-23] MEDS: MINERAL OIL 30 ML UDCUP PO SCH (08:15)
[2021-11-23] MEDS: HEPARIN SODIUM,PORCINE 5,000 UNITS/ML VIAL SQ SCH ×3 (08:16→23:30)
[2021-11-23] MEDS: PANTOPRAZOLE SODIUM 40 MG/VIAL IVP SCH (08:16)
[2021-11-23] MEDS: DOXYCYCLINE HYCLATE 100 MG in DEXTROSE 5%-WATER 100 ML IV SCH ×2 (11:48→22:24)
[2021-11-23 16:00] VITALS: BP 146/68
[2021-11-23 19:40] VITALS: BP 133/69
[2021-11-24 03:30] VITALS: BP 137/71
[2021-11-24] MEDS: MEROPENEM 1 GM in SODIUM CHLORIDE 0.9% 100 ML IV SCH (05:13)
[2021-11-24 07:46] VITALS: BP 137/84
[2021-11-24] MEDS: MINERAL OIL 30 ML UDCUP PO SCH (08:21)
[2021-11-24] MEDS: HEPARIN SODIUM,PORCINE 5,000 UNITS/ML VIAL SQ SCH ×2 (08:21→16:40)
[2021-11-24] MEDS: PANTOPRAZOLE SODIUM 40 MG/VIAL IVP SCH (08:21)
[2021-11-24] MEDS: DOXYCYCLINE HYCLATE 100 MG in DEXTROSE 5%-WATER 100 ML IV SCH (10:14)
[2021-11-24] MEDS ORDERED: ERTAPENEM SODIUM 1 GM in SODIUM CHLORIDE 0.9% 50 ML IV SCH (13:00)
[2021-11-24] MEDS ORDERED: AMOX1TAB16 PO (14:15)
[2021-11-24 16:00] VITALS: BP 120/70
== END 2021-11-24 18:10 | disposition home or self-care (01) | DRG 244 ==
LOC: EMS 21:01 → 5S 23:48 → 6N 11-07 14:16
PROVIDERS: ADMIT Internal Medicine; ATTEND Internal Medicine
PROC: 05HY33Z Insertion of Infusion Device into Upper Vein, Percutaneous Approach (ICD-10-PCS; principal; 2021-11-17)
DX: K57.20 Diverticulitis of large intestine with perforation and abscess without bleeding (principal); E43 Unspecified severe protein-calorie malnutrition; A04.9 Bacterial intestinal infection, unspecified; K56.7 Ileus, unspecified; I10 Essential (primary) hypertension; K62.89 Other specified diseases of anus and rectum; Z20.822 Contact with and (suspected) exposure to COVID-19; E78.00 Pure hypercholesterolemia, unspecified; Z79.899 Other long term (current) drug therapy; Z68.26 Body mass index [BMI] 26.0-26.9, adult
CPT/HCPCS: 36245; 36569; 74177; 76937; 80053; 81001; 83690; 84132; 84484; 85025; 87040; 87491; 87591; 87804; 93005; 99285; C9113; J0131; J1335; J1644; J1956; J2185; J2270; J2405; J2543; J3490; J7030; J7040; J7050; J7060; J7120; Q9967